=== PATIENT | female | born 1985 | race Caucasian/White ===

== ENCOUNTER 2022-01-13 00:18 | Emergency (ER) | payer OTHER ==
[~2022-01-13] VITALS: Ht 170.2 cm; Wt 68.0 kg
[2022-01-13] MEDS ORDERED: LEVE500 PO ×2 (00:40→01:04)
[2022-01-13] MEDS ORDERED: AMLO5 PO (00:40)
== END 2022-01-13 01:53 | disposition home or self-care (01) ==
LOC: ER 00:18
DX: S20.211A Contusion of right front wall of thorax, initial encounter (principal); I10 Essential (primary) hypertension; F17.210 Nicotine dependence, cigarettes, uncomplicated; Y04.0XXA Assault by unarmed brawl or fight, initial encounter
CPT/HCPCS: A9270